=== PATIENT | female | born 1960 | race Caucasian/White ===

== ENCOUNTER 2017-03-21 00:56 | Emergency (ER) | payer MEDICARE, OTHER ==
[~2017-03-21] VITALS: Ht 170.2 cm; Wt 119.3 kg
[~2017-03-21 00:56] MED LIST: ABILIFY 5 MG TAB5 MG PO; ALDACTONE50 MG PO; ALTACE5 M1 PO; ANTIVERT25 MG PO; ATIVAN0.5 MG PO; CENTRUM SILVER1 EAC4; CLEOCIN HCL300 MG; CLONAZEPAM; CLONAZEPAM 1 MG1 M1 PO; CLONAZEPAM PO; CLONIDINE PO; CLONIDINE0.1 PO; COLACE 100 MG100 MG PO; CORTEF5 MG PO; CYMBALTA60 MG PO; EFFEXOR XR75 MG PO; EFFEXOR75 MG; ENOXAPARIN40 MG/0.1 SUBQ; FLEXERIL PO; FLONASE 0.05%50 MCG NASAL; HYDROCHLOROTHIA25 M2 PO; HYDROCODONE-AP1 EAC6 PO; IBUPROFEN 800800 M1 PO; LASIX 20 MG TAB20 MG PO; LEXAPRO 10 MG T10 MG PO; LUNESTA3 MG PO; METAMUCIL425 GM PO; NEURONTIN 300M300 M2 PO; NORCO 10-325 T1 EACH PO; NORCO 5-325 TA1 EACH PO; PAMELOR25 MG PO; PERCOCET 5-3251 EACH PO; PREDNISONE 10 M10 M1 PO; PRILOSEC40 MG PO; PRISTIQ50 MG PO; TIZANIDINE HCL4 MG PO; VICODIN 5-5001 EACH PO; VITAMIN D 5050000 I1 PO; ZANAFLEX4 M1 PO
[2017-03-21] MEDS ORDERED: REXULTI2 MG PO (01:02)
[2017-03-21] MEDS ORDERED: MOBIC15 MG PO (01:03)
[2017-03-21 01:39] LABS: ABSOLUTE BASOPHILS 0.1 thou/uL (0.0-0.2); ABSOLUTE EOSINOPHILS 0.2 thou/uL (0.0-0.7); ABSOLUTE MONOCYTES 0.6 thou/uL (0.0-1.2); ABSOLUTE NEUTROPHILS 2.8 thou/uL (1.6-8.1); BASOPHILS 0.8 %; EOSINOPHILS 2.3 %; HEMATOCRIT 40.5 % (37.0-47.0); HEMOGLOBIN 14.4 gm/dL (12.0-15.0); MCH 33.3 pg (26.0-34.0); MCHC 35.5 g/dL (28.0-37.0); MCV 93.8 fL (80.0-100.0); MONOCYTES 9.6 %; MPV 6.9 fl. (7.2-11.1); NUCLEATED RBCS 0 /100WBC; PLATELET COUNT* 269 thou/uL (150-400); POLYS 42.3 %; RBC 4.32 mil/uL (4.20-5.00); RDW-CV 12.8 % (10.5-14.5); WBC 6.6 thou/uL (4.0-11.0)
[2017-03-21 01:48] LABS: CALCIUM 9.4 mg/dL (8.5-10.1); CREATININE 0.8 mg/dL (0.6-1.3); POTASSIUM 3.6 mmol/L (3.5-5.1)
[2017-03-21 01:52] LABS: TOTAL BILIRUBIN 0.4 mg/dL (<0.1-1.0); TOTAL PROTEIN 7.5 g/dL (6.4-8.2)
[2017-03-21] MEDS ORDERED: HYDROCODONE-AP1 EAC6 PO (03:47)
[2017-03-21 03:55] VITALS: BP 133/76
== END 2017-03-21 03:55 | disposition home or self-care (01) ==
LOC: M.ERS 00:56
PROVIDERS: Family Medicine
DX: M25.561 Pain in right knee (principal); M79.7 Fibromyalgia; G47.30 Sleep apnea, unspecified; F32.9 Major depressive disorder, single episode, unspecified; K21.9 Gastro-esophageal reflux disease without esophagitis; I10 Essential (primary) hypertension; M79.89 Other specified soft tissue disorders; F41.9 Anxiety disorder, unspecified; G61.0 Guillain-Barre syndrome; Z88.7 Allergy status to serum and vaccine; Z88.5 Allergy status to narcotic agent

== ENCOUNTER 2018-03-26 10:45 | Emergency (ER) | payer MEDICARE, OTHER ==
[~2018-03-26] VITALS: Ht 165.1 cm; Wt 86.2 kg
[~2018-03-26 10:45] MED LIST changes: -EFFEXOR XR75 MG PO; +MOBIC15 MG PO; +REXULTI2 MG PO; +VENLAFAXINE HC150 M1 PO
[2018-03-26] MEDS ORDERED: ADDERALL XR 2020 MG PO (11:01)
[2018-03-26] MEDS ORDERED: ZANAFLEX2 M1 PO (11:01)
[2018-03-26] MEDS ORDERED: DICLOFENAC SOD50 MG PO (11:01)
[2018-03-26] MEDS ORDERED: TRAZODONE HCL100 MG PO (11:02)
[2018-03-26] MEDS ORDERED: ARMOUR THYROID180 M1 PO (11:02)
[2018-03-26 12:04] LABS: ABSOLUTE EOSINOPHILS 0.1 thou/uL (0.0-0.7); ABSOLUTE LYMPHOCYTES 0.9 thou/uL (0.8-5.3); ABSOLUTE MONOCYTES 0.3 thou/uL (0.0-1.2); ABSOLUTE NEUTROPHILS 2.5 thou/uL (1.6-8.1); EOSINOPHILS 2.5 %; HEMOGLOBIN 12.5 gm/dL (12.0-15.0); LYMPHOCYTES 24.3 %; MCHC 33.9 g/dL (28.0-37.0); MCV 100.4 fL (80.0-100.0); MONOCYTES 8.4 %; MPV 6.7 fl. (7.2-11.1); NUCLEATED RBCS 0 /100WBC; PLATELET COUNT* 311 thou/uL (150-400); POLYS 63.8 %; RBC 3.69 mil/uL (4.20-5.00); WBC 3.8 thou/uL (4.0-11.0)
[2018-03-26 12:37] LABS: CALCIUM 8.9 mg/dL (8.5-10.1); CREATININE 0.8 mg/dL (0.6-1.3)
[2018-03-26 12:42] LABS: ALBUMIN 3.1 g/dL (3.4-5.0); TOTAL BILIRUBIN 0.4 mg/dL (<0.1-1.0); TOTAL PROTEIN 6.3 g/dL (6.4-8.2)
[2018-03-26] MEDS ORDERED: ROBAXIN500 MG PO (12:51)
[2018-03-26 12:56] VITALS: BP 117/72
== END 2018-03-26 12:56 | disposition home or self-care (01) ==
LOC: M.ERS 10:45
PROVIDERS: Nurse Practitioner Family
DX: S86.811A Strain of other muscle(s) and tendon(s) at lower leg level, right leg, initial encounter (principal); F17.200 Nicotine dependence, unspecified, uncomplicated; G47.30 Sleep apnea, unspecified; F32.9 Major depressive disorder, single episode, unspecified; K21.9 Gastro-esophageal reflux disease without esophagitis; I10 Essential (primary) hypertension; M79.7 Fibromyalgia; M51.36 Other intervertebral disc degeneration, lumbar region; F41.9 Anxiety disorder, unspecified; Z88.2 Allergy status to sulfonamides; Z88.4 Allergy status to anesthetic agent; Z88.7 Allergy status to serum and vaccine; Z90.710 Acquired absence of both cervix and uterus; Z98.890 Other specified postprocedural states; Z95.5 Presence of coronary angioplasty implant and graft; Z96.651 Presence of right artificial knee joint; W00.0XXA Fall on same level due to ice and snow, initial encounter; Y92.89 Other specified places as the place of occurrence of the external cause; Y93.89 Activity, other specified; Y99.8 Other external cause status

== ENCOUNTER 2018-10-28 10:33 | Emergency (ER) | payer MEDICARE, OTHER ==
[~2018-10-28] VITALS: Ht 167.6 cm; Wt 111.1 kg
[~2018-10-28 10:33] MED LIST changes: +ADDERALL XR 2020 MG PO; +ARMOUR THYROID180 M1 PO; +DICLOFENAC SOD50 MG PO; +ROBAXIN500 MG PO; +TRAZODONE HCL100 MG PO; +ZANAFLEX2 M1 PO
[2018-10-28 12:02] VITALS: BP 110/78
== END 2018-10-28 12:03 | disposition home or self-care (01) ==
LOC: M.ERS 10:33
DX: S40.021A Contusion of right upper arm, initial encounter (principal); S40.011A Contusion of right shoulder, initial encounter; G47.30 Sleep apnea, unspecified; M79.7 Fibromyalgia; F32.9 Major depressive disorder, single episode, unspecified; K21.9 Gastro-esophageal reflux disease without esophagitis; I10 Essential (primary) hypertension; F41.9 Anxiety disorder, unspecified; F17.200 Nicotine dependence, unspecified, uncomplicated; Z98.890 Other specified postprocedural states; Z95.2 Presence of prosthetic heart valve; Z90.710 Acquired absence of both cervix and uterus; Z96.659 Presence of unspecified artificial knee joint; Z88.2 Allergy status to sulfonamides; Z88.6 Allergy status to analgesic agent; Z88.7 Allergy status to serum and vaccine; W01.190A Fall on same level from slipping, tripping and stumbling with subsequent striking against furniture, initial encounter; Y92.000 Kitchen of unspecified non-institutional (private) residence as the place of occurrence of the external cause; Y93.89 Activity, other specified; Y99.8 Other external cause status

== ENCOUNTER → 2018-11-14 | Outpatient (CLI) | payer MEDICARE, OTHER | LOC: M.MRI 16:29 | DX: S42.261A Displaced fracture of lesser tuberosity of right humerus, initial encounter for closed fracture (principal); M19.011 Primary osteoarthritis, right shoulder; M75.81 Other shoulder lesions, right shoulder; M25.411 Effusion, right shoulder; W19.XXXA Unspecified fall, initial encounter; Y93.89 Activity, other specified; Y92.89 Other specified places as the place of occurrence of the external cause; Y99.8 Other external cause status ==

== ENCOUNTER 2019-03-06 06:16 | Inpatient (IN) | payer MEDICARE, OTHER ==
[2019-02-08 09:18] LABS: ABSOLUTE BASOPHILS 0.1 thou/uL (0.0-0.2); ABSOLUTE EOSINOPHILS 0.1 thou/uL (0.0-0.7); ABSOLUTE LYMPHOCYTES 1.6 thou/uL (0.8-5.3); ABSOLUTE MONOCYTES 0.5 thou/uL (0.0-1.2); EOSINOPHILS 2.4 %; HEMOGLOBIN 14.5 gm/dL (12.0-15.0); LYMPHOCYTES 29.9 %; MCH 34.8 pg (26.0-34.0); MCHC 34.4 g/dL (28.0-37.0); MCV 101.1 fL (80.0-100.0); MONOCYTES 9.2 %; MPV 7.1 fl. (7.2-11.1); NUCLEATED RBCS 0 /100WBC; PLATELET COUNT* 266 thou/uL (150-400); POLYS 57.5 %; RBC 4.15 mil/uL (4.20-5.00); RDW-CV 13.1 % (10.5-14.5); WBC 5.3 thou/uL (4.0-11.0)
[2019-02-08 09:28] LABS: APTT 24.5 Seconds (25.0-31.3); PROTIME 10.5 Seconds (9.20-11.50)
[2019-02-08 09:31] LABS: ALBUMIN 4.1 g/dL (3.4-5.0); CALCIUM 9.2 mg/dL (8.5-10.1); CREATININE 0.8 mg/dL (0.6-1.3); POTASSIUM 4.3 mmol/L (3.5-5.1); TOTAL BILIRUBIN 0.4 mg/dL (<0.1-1.0); TOTAL PROTEIN 7.6 g/dL (6.4-8.2)
[2019-02-08 10:31] LABS: ESR (SEDRATE) 5 mm/hr (0-30)
--- NOTE | 2019-02-08 15:16 | EKG ---
[place] [address] ELECTROCARDIOGRAM REPORT Name: MITCH BURNS Room: [facility].#: [id number] Admission: Attend Phys: Se Marino DO Discharge: Date of : 60 Report #: [id number] THIS REPORT FOR: //name// [facility] Test Date: 2019-02-08 Test Time: 09:19:39 Pat Name: MITCH BURNS Department: Room: Gender: F [employer]: : 1960 Requested By: Se Marino Order Number: [id number] Reading MD: Kaden Schumacher Measurements Intervals Silt Rate: 67 P: -7 HI: 175 QRS: 44 QRSD: 104 T: 55 QT: 426 QTc: 450 Interpretive Statements Sinus rhythm Low voltage, precordial leads Compared to ECG 07/14/2014 22:43:58 No significant changes Electronically Signed On 02-08-2019 15:16:33 CUSTOMER ENGINEER by Kaden Schumacher [email or web address] <ELECTRONICALLY SIGNED> By: Kaden Schumacher MD, [facility] 02/08/19 1516 8 09 Kaden Schumacher MD, FACC /EPI
[2019-02-09 02:10] LABS: GLYCOHEMOGLOBIN (HGB A1C) 5.1 % (4.8-5.6)
[~2019-03-06] VITALS: Ht 170.2 cm; Wt 111.1 kg
[~2019-03-06 06:16] MED LIST changes: +CATAPRES0.1 MG PO; -CLONIDINE0.1 PO; +VESICARE 5 MG TA5 MG PO; -ZANAFLEX2 M1 PO
[2019-03-06 13:05] VITALS: BP 101/54
[2019-03-06] MEDS ORDERED: CLONAZEPAM 1 MG1 M1 PO (13:12)
[2019-03-06] MEDS ORDERED: OMEPRAZOLE40 MG PO (13:19)
[2019-03-06] MEDS ORDERED: CARAFATE 1 GM TA1 GM PO (13:26)
[2019-03-06] MEDS ORDERED: BENTYL 10 MG CA10 MG PO (13:42)
[2019-03-06] MEDS ORDERED: IBUPROFEN 800800 M1 PO (13:50)
--- NOTE | 2019-03-06 18:51 | NUR ---
PT ARRIVED FROM PACU TO [facility] ABOUT 1830. A&Ox4. VITALS STABLE. IV PATENT. MINIMAL PAIN, NO PAIN MEDS GIVEN. DENIED NAUSEA. TOLERATING LIQUIDS. DRESSING C/D/I. TEDs, FOOT PUMPS AND ICE PACK IN PLACE. FAMILY IN ROOM. CERVANTES IN PLACE. CALL LIGHT WITHIN REACH. FALL PRECAUTIONS IN PLACE. WILL CONTINUE TO MONITOR.
[2019-03-06 18:57] VITALS: BP 131/70
[2019-03-06 19:55] VITALS: BP 139/83
[2019-03-07] VITALS: BP 103/63
[2019-03-07 04:00] VITALS: BP 115/72
--- NOTE | 2019-03-07 04:54 | NUR ---
PT SLEEPING/RESTING THROUGH THE NIGHT. MEDS GIVEN ORDERED. VSS ON RA. DENIED N/V. DRESSING TO LT KNEE C/D/I. LISA HOSE, ICE PACKS IN PLACE. PAIN MANAGED WITH OXY IR. IV FLUID RUNNING ORDERED. AT BEDSIDE. CERVANTES IN PLACE. WILL CONTINUE TO MONITOR.
[2019-03-07 05:19] LABS: HEMATOCRIT 33.6 % (37.0-47.0); HEMOGLOBIN 11.8 gm/dL (12.0-15.0)
--- NOTE | 2019-03-07 06:42 | OP ---
[address] [address] OPERATIVE REPORT Name: MITCH BURNS KARIN Room: [address] M.R.#: [id number] Admission: 03/06/19 Attend Phys: Giovanni Marks Discharge: Date of : 60 Report #: [id number] THIS REPORT FOR: //name// CC: Butch Ricardo DATE OF SERVICE: 03/06/2019 PREOPERATIVE DIAGNOSIS: Severe osteoarthritis of the left knee, tricompartmental. POSTOPERATIVE DIAGNOSIS: Severe osteoarthritis of the left knee, tricompartmental. SURGERY PERFORMED: Hansel cemented 3-component left total knee arthroplasty Persona femur #9, tibia #E, polyethylene is 13, patella is 35. SURGEON: Se Marino D.O. ANESTHESIA: Spinal anesthetic plus an adductor canal block. ANTIBIOTICS: Received Ancef 2 grams IV piggyback preoperatively. SPECIMENS: None. COMPLICATIONS: None. ESTIMATED BLOOD LOSS: 150 mL. DRAINS: No drains. GROSS FINDINGS: Prior to surgery, this patient failed all conservative care measures for osteoarthritis of the left knee intraoperatively correlated exactly with the radiographs, multiple osteophytes throughout the knee, totally eburnated bone, patellofemoral and distal femoral, especially on the medial side. The patient post placement of this total knee arthroplasty had excellently aligned patella, well tracking patella through the entire arc of motion, and a stable arc of motion in varus, valgus, extension, mid flexion, and flexion. SURGERY IN DETAIL: She was taken to the operating room. Prior to taking to the operating room, had an adductor canal block applied by Anesthesia. Then, in the operating room, she had a spinal anesthetic next accomplished and tolerated that well. A well-padded tourniquet was placed high on the left thigh. Her leg, at this point in time, underwent a Hibiclens scrub, chlorhexidine prep and sterile draping for left leg surgery. Timeout was called and [place] [address] OPERATIVE REPORT Name: MITCH BURNS Room: [address] M.R.#: [id number] Admission: 03/06/19 Attend Phys: Giovanni Marks Discharge: Date of : 60 Report #: [id number] the room for the left total knee. Surgery began without a tourniquet. I only used it for cementing purposes. A midline incision was made through skin and subcutaneous tissues with a 20-blade scalpel through skin and subcutaneous tissues followed by the second medial parapatellar capsular incision. Hemostasis was maintained throughout surgery. The patella was everted, knee flexed to 90 degrees, and excess osteophytes were removed. I did a 5-degree cut on this left knee region with a distal femoral cutting guide after appropriately drilled it. Once that distal femoral cut, bone was removed, I went down and did an external guide to the tibia side. The cutting block was secured proximally and measured off of the high side and the block was secured in position with the pins. The wafer of bone was cut and removed from the tibia. Extension block fit well. All pins were now removed. I sized that femur to a #9 appropriately. The 4-in-1 block was applied, all cuts were made. Surgery now continued addressing the tibia side of the knee, sizing it to #E, secured the baseplate into position for that with screws. The femur was put into position. I did trial with a 10 and a 12 polyethylene. The 12 was better than the 10, so now I elected to cut the patella using the Hansel reamer, sized it as stated above, and appropriately drilled the holes. Patella was placed on through the arc of motion 35. Surgery continued at this point in time with now Esmarch in this extremity getting that ready for a one-stage cementing technique. Tourniquet was inflated to 300 mmHg now. The distal femoral drill holes were next made. Femoral component and the trial polyethylene was removed. The tibia baseplate appropriately reamed and a cruciform cut was punched. The tibia baseplate was removed. The pulsatile lavage irrigated the entire knee. I did burn all posterior corners of this knee region prior to getting ready to do the cementing technique. I did a one stage cement. I cemented the tibia first, tamped it into position, and removed excess cement. Likewise, I cemented the femur into position, tamped it there, and removed excess cement there. I compressed her with a 13 mm polyethylene. She tolerated it quite well and held her in extension. The patella was next cemented. Excess cement removed and we held the leg in position until it was time for the final polyethylene decision. Once the cement hardened, I copiously irrigated the knee. I put TXA in the knee as well for 3 minutes and then removed that. The tourniquet was released. Hemostasis easily maintained. I elected to take a 13 mm polyethylene vitamin E and placed it in the tibia tray until audible click. Surgery continued then at this point in time with inspecting the knee one more time, nothing new was found that was unusual excess cement, etc., or bony fragments. Capsule was closed with #1 Vicryl and #1 Ticron in [id number] fashion, subcutaneous tissues with 2-0 Monocryl inverted and a Stratafix and Dermabond to the skin with Mepilex dressing. She was transferred off the table, taken [place] [address] OPERATIVE REPORT Name: MITCH BURNS KARIN Room: [address] Leonard Vargas#: [id number] Admission: 03/06/19 Attend Phys: Giovanni Marks Discharge: Date of : 60 Report #: [id number] I attest I was present for all critical aspects of surgery. Needle, instrument, and sponge counts were correct. <ELECTRONICALLY SIGNED> By: Se Marino DO 03/07/19 0642 1652 Kaley Marino DO /trixie
[2019-03-07 07:30] VITALS: BP 127/83
--- NOTE | 2019-03-07 12:00 | NUR ---
PT UP IN CHAIR VISITING WITH BUTTON TUFTING MACHINE OPERATOR. HE STEPPED OUT OF THE ROOM WHILE CM SPOKE WITH PT. SHE SAID SHE LIVES WITH HER S.O.,SATISH. HE WILL BE WITH HER WHEN SHE IS DISCHARGED AND CAN ASSIST HER NEEDED. SHE HAS A FRONT WHEELED WALKER IN ROOM FROM HOME. SHE IS NORMALLY INDEPENDENT. SHE WOULD LIKE TO USE [facility] FOR HH. SHE HAS USED THEM IN THE PAST. REFERRAL SENT OT [facility] AND TOLD OF PROB.DISCHARGE TOMORROW. CM CALLED IN PRESCRTIPTION FOR [facility]. WILL CALL BACK FOR COPAY.
--- NOTE | 2019-03-07 17:44 | NUR ---
PT REMAINED ALERT AND ORIENTED. PT RESTING IN BED. PAIN MEDS GIVEN ORDERED. PT WANTED TO STAY FOR PAIN CONTROL AND THERAPY. FALL RISK PRECAUTIONS IN PLACE. HOURLY ROUNDING COMPLETED. WILL CONTINUE TO MONITOR.
[2019-03-07 18:54] VITALS: BP 127/83
[2019-03-07 20:40] VITALS: BP 100/55
[2019-03-08] VITALS: BP 85/46
[2019-03-08 04:00] VITALS: BP 103/55
[2019-03-08 04:14] LABS: HEMATOCRIT 28.3 % (37.0-47.0); HEMOGLOBIN 9.9 gm/dL (12.0-15.0)
--- NOTE | 2019-03-08 04:36 | NUR ---
MEDS GIVEN ORDERED. PAIN PARTIALLY CONTROLLED WITH TORADOL, OXY IR, TRAMADOL. UP TO BSC WITH MINIMUM ASSIST. IV FLUID GIVEN FOR LOW BP. ICE PACK IN PLACE. AT BEDSIDE. WILL CONTINUE TO MONITOR.
[2019-03-08 11:17] VITALS: BP 127/83
--- NOTE | 2019-03-08 11:45 | NUR ---
PRESCRIPTION FOR JOHN CALLED INTO [facility]ITT[facility]. TAI SAID COPAY IS $4 BUT THEY WILL NEED TO ORDER MED IN. THEY WILL NOT HAVE UNTIL TOMORROW. SPOKE WITH PT. SHE WOULD LIKE ME TO CALL JOHN INTO [facility] IN [place]. CALLED IN PRESRCIPTION. TOLD PHARMACIST PT.WOULD BRING IN INSURANCE CARD. DEANNE MACIAS FROM [facility]. GAVE HER COPY OF DISCHARGE SUMMARY, MED LIST AND ORTHO ORDERS. SHE WAS GOING TO VISIT PT.
[2019-03-08] MEDS ORDERED: ULTRAM50 MG PO (11:54)
[2019-03-08] MEDS ORDERED: ROXICODONE5 M2 PO (11:56)
[2019-03-08 14:24] VITALS: BP 127/83
--- NOTE | 2019-03-08 16:00 | NUR ---
DISCHARGED TO HOME W/ PRESENT. DISCHARGE INSTRUCTIONS REVIEWED W/ PATIENT. PATIENT STATES VERBALLY OF UNDERSTNADING. COPY OF INSTRUCTIONS AND ORIG SCRIPTS GIVEN IN FOLDER. BELONGINGS GATHERED AND TAKEN OFF UNIT PER . PATIENT INSTRUCTED WILL HAVE HOME HEALTH, THEY WILL BE CALLING HER FOR SET UP OF SERVICES. HRLY ROUNDS DONE THRU SHIFT. SEE MAR. PATIENT DRESSES INDEP W/ MIN ASST OF NURSING. ESCORTED TO AWAITING VEHICLE PER WC W/ NURSING PRESENT. NO ACUTE DISTRESS NOTED. ~TJRN
== END 2019-03-08 16:00 | disposition home health service (06) | DRG 470 ==
LOC: M.SUR 06:16 → EDSTATUS 06:17 → M.PRE 06:18 → M.ORTHSURG 12:44 → M.TBA 12:44 → M.ORTHSURG 15:19
PROVIDERS: Orthopaedic Surgery; ADMIT Internal Medicine
PROC: 0SRD0J9 Replacement of Left Knee Joint with Synthetic Substitute, Cemented, Open Approach (ICD-10-PCS; principal; 2019-03-06)
DX: M17.12 Unilateral primary osteoarthritis, left knee (principal); F41.9 Anxiety disorder, unspecified; M79.7 Fibromyalgia; M47.9 Spondylosis, unspecified; F32.9 Major depressive disorder, single episode, unspecified; F43.10 Post-traumatic stress disorder, unspecified; G89.29 Other chronic pain; K21.9 Gastro-esophageal reflux disease without esophagitis; E11.9 Type 2 diabetes mellitus without complications; I10 Essential (primary) hypertension; Z96.651 Presence of right artificial knee joint; F17.210 Nicotine dependence, cigarettes, uncomplicated; Z88.1 Allergy status to other antibiotic agents; Z88.7 Allergy status to serum and vaccine; Z88.8 Allergy status to other drugs, medicaments and biological substances; Z79.899 Other long term (current) drug therapy; Z90.710 Acquired absence of both cervix and uterus

== ENCOUNTER 2019-03-17 17:58 | Emergency (ER) | payer MEDICARE, OTHER ==
[~2019-03-17] VITALS: Ht 167.6 cm; Wt 106.6 kg
[~2019-03-17 17:58] MED LIST changes: +BENTYL 10 MG CA10 MG PO; +CARAFATE 1 GM TA1 GM PO; +OMEPRAZOLE40 MG PO; +ROXICODONE5 M2 PO; +ULTRAM50 MG PO
[2019-03-17 18:43] LABS: ABSOLUTE BASOPHILS 0.1 thou/uL (0.0-0.2); ABSOLUTE EOSINOPHILS 0.2 thou/uL (0.0-0.7); ABSOLUTE LYMPHOCYTES 1.4 thou/uL (0.8-5.3); ABSOLUTE MONOCYTES 0.4 thou/uL (0.0-1.2); ABSOLUTE NEUTROPHILS 3.5 thou/uL (1.6-8.1); BASOPHILS 1.3 %; EOSINOPHILS 3.6 %; HEMATOCRIT 29.9 % (37.0-47.0); HEMOGLOBIN 10.6 gm/dL (12.0-15.0); LYMPHOCYTES 25.6 %; MCH 35.5 pg (26.0-34.0); MCHC 35.4 g/dL (28.0-37.0); MCV 100.3 fL (80.0-100.0); MONOCYTES 7.9 %; MPV 6.8 fl. (7.2-11.1); NUCLEATED RBCS 0 /100WBC; PLATELET COUNT* 368 thou/uL (150-400); POLYS 61.6 %; RBC 2.98 mil/uL (4.20-5.00); RDW-CV 13.2 % (10.5-14.5); WBC 5.6 thou/uL (4.0-11.0)
[2019-03-17 18:53] LABS: CALCIUM 8.4 mg/dL (8.5-10.1); CREATININE 0.8 mg/dL (0.6-1.3); POTASSIUM 4.2 mmol/L (3.5-5.1)
[2019-03-17 18:58] LABS: ALBUMIN 3.1 g/dL (3.4-5.0); TOTAL BILIRUBIN 0.3 mg/dL (<0.1-1.0); TOTAL PROTEIN 6.7 g/dL (6.4-8.2)
[2019-03-17 19:00] LABS: PROTIME 10.7 Seconds (9.20-11.50)
[2019-03-17] MEDS ORDERED: OXYCODONE HCL10 MG PO (21:02)
[2019-03-17 21:20] VITALS: BP 137/80
== END 2019-03-17 21:20 | disposition home or self-care (01) ==
LOC: M.ERS 17:58
PROVIDERS: Emergency Medicine
DX: T84.84XA Pain due to internal orthopedic prosthetic devices, implants and grafts, initial encounter (principal); I10 Essential (primary) hypertension; K21.9 Gastro-esophageal reflux disease without esophagitis; F32.9 Major depressive disorder, single episode, unspecified; Z96.653 Presence of artificial knee joint, bilateral; M79.7 Fibromyalgia; Z90.710 Acquired absence of both cervix and uterus; Z98.890 Other specified postprocedural states; Z88.2 Allergy status to sulfonamides; Z88.5 Allergy status to narcotic agent; Z88.6 Allergy status to analgesic agent; Z88.7 Allergy status to serum and vaccine; Y92.89 Other specified places as the place of occurrence of the external cause

== ENCOUNTER → 2020-07-24 | Outpatient (CLI) | payer MEDICARE, OTHER ==
[~2020-07-24] MED LIST changes: +OXYCODONE HCL10 MG PO
== END ==
LOC: M.WC 08:00
PROVIDERS: ATTEND Family Medicine
DX: L02.211 Cutaneous abscess of abdominal wall (principal); S30.861A Insect bite (nonvenomous) of abdominal wall, initial encounter; E66.01 Morbid (severe) obesity due to excess calories; G47.30 Sleep apnea, unspecified; G61.0 Guillain-Barre syndrome; I10 Essential (primary) hypertension; K21.9 Gastro-esophageal reflux disease without esophagitis; M19.90 Unspecified osteoarthritis, unspecified site; F32.9 Major depressive disorder, single episode, unspecified; F17.200 Nicotine dependence, unspecified, uncomplicated; F41.9 Anxiety disorder, unspecified; Z90.710 Acquired absence of both cervix and uterus; W57.XXXA Bitten or stung by nonvenomous insect and other nonvenomous arthropods, initial encounter; Y93.89 Activity, other specified; Y92.89 Other specified places as the place of occurrence of the external cause; Y99.8 Other external cause status

== ENCOUNTER → 2020-07-31 | Outpatient (CLI) | payer MEDICARE, OTHER | LOC: M.WC 09:12 | PROVIDERS: ATTEND Family Medicine | DX: S30.861D Insect bite (nonvenomous) of abdominal wall, subsequent encounter (principal); L02.211 Cutaneous abscess of abdominal wall; I10 Essential (primary) hypertension; M19.90 Unspecified osteoarthritis, unspecified site; G61.0 Guillain-Barre syndrome; G47.30 Sleep apnea, unspecified; F32.9 Major depressive disorder, single episode, unspecified; F17.290 Nicotine dependence, other tobacco product, uncomplicated; Z79.899 Other long term (current) drug therapy; W57.XXXD Bitten or stung by nonvenomous insect and other nonvenomous arthropods, subsequent encounter ==